=== PATIENT | female | born 1960 | race African-American/Black ===

== ENCOUNTER 2016-11-28 09:01 | Emergency (ER) | payer OTHER ==
[~2016-11-28] VITALS: Wt 115.0 kg
[2016-11-28] MEDS ORDERED: HC2.5O30 TOP (09:40)
[2016-11-28] MEDS ORDERED: HYDR-845 PO (09:40)
[2016-11-28] MEDS ORDERED: CEPH500C PO (09:40)
--- NOTE | 2016-11-28 09:59 | ERD ---
ER Documentation Chief Complaint Date/Time DATE: 11/28/16 TIME: 09:54 Chief Complaint DRY/ITCHY SKIN ON HANDS, ONSET 3 DAYS HPI This is a 56-year-old female with a history of eczema presenting to the emergency department complaining of rash on hands bilaterally for the past week. States is moderate to severe. Patient states that it is very itchy and started after washing her hands. She states that her hands are very dry and it was weeping discharge yesterday. Patient states that she has been using triamcinolone cream in the past however they have told her to discontinue it since it tends the skin. She states that she has not tried any creams or medications for her hands. She denies any fevers. She states that she has not followed up with a clay modeler ROS All systems reviewed and are negative except as per history of present illness. Medications Home Meds Active Scripts Hydrocortisone* Topical (Hydrocortisone* Topical) 2.5%-28.3 Gm Oint, 1 APPLIC TOP BID for 7 Days, TUB Prov:GRANT SHER PA-C 11/28/16 Cephalexin* (Cephalexin*) 500 Mg Capsule, 500 MG PO Q6, #28 CAP Prov:GRANT SHER PA-C 11/28/16 Hydroxyzine Hcl* (Atarax*) 50 Mg Tab, 50 MG PO Q8H Y for ITCHING, #30 TAB Prov:GRANT SHER PA-C 11/28/16 PMhx/Soc Medical and Surgical Hx: pt denies Surgical Hx History of Surgery: No Anesthesia Reaction: No Hx Neurological Disorder: No Hx Respiratory Disorders: No Hx Cardiac Disorders: No Hx Psychiatric Problems: No Hx Miscellaneous Medical Probl: Yes (Psoriasis) Hx Alcohol Use: No Hx Substance Use: No Hx Tobacco Use: No Smoking Status: Never smoker Physical Exam Vitals Vital Signs Date Time Temp Pulse Resp B/P Pulse Ox O2 Delivery O2 Flow Rate FiO2 11/28/16 09:09 97.6 71 18 168/83 98 Physical Exam General: WD/WN, in no apparent distress, non-toxic appearing HENT: NC/AT Eyes: Conjunctiva normal Neck: Supple Pulm: Clear to auscultation, normal labored breathing; no wheezing/rales/ rhonchi heard CV: Good capillary refill GI: Non-distended, no guarding Back: No masses Ext: No clubbing, cyanosis, or edema Neuro: Moves on all fours Skin: Thickened erythematous eczematous dermatitis on bilateral hands with lichenification, no evidence of induration or purulence Psych: Normal mood Procedures/MDM This is a 56-year-old female presenting to the emergency department with rash on hands bilaterally which is most consistent with eczema exacerbation vs contact dermatitis. Patient's hands had cracked and broken skin with erythema, patient will be given Keflex for possible secondary infection. Patient is appropriate to be discharged home to follow-up with a clay modeler in the next couple days. I discussed a short course of low potency of steroids for one week , since patient was told to not use any high potency steroids because she has the risk for thinning skin. Prescription for Atarax and hydrocortisone 2.5% ointment was given 1 week. Patient stable for discharge for home with precautions to return to the emergency department for any worsening symptoms. She understands and agrees with this plan Departure Diagnosis: Primary Impression: Dermatitis Condition: Fair Patient Instructions: Atopic Dermatitis (Eczema), Contact Dermatitis Referrals: [facility] YOU HAVE RECEIVED A MEDICAL SCREENING EXAM AND THE RESULTS INDICATE THAT YOU DO NOT HAVE A CONDITION THAT REQUIRES URGENT TREATMENT IN THE EMERGENCY DEPARTMENT. FURTHER EVALUATION AND TREATMENT OF YOUR CONDITION CAN WAIT UNTIL YOU ARE SEEN IN YOUR DOCTORS OFFICE WITHIN THE NEXT 1-2 DAYS. IT IS YOUR RESPONSIBILITY TO MAKE AN APPOINTMENT FOR FOLOW-UP CARE. IF YOU HAVE A PRIMARY DOCTOR --you should call your primary doctor and schedule an appointment IF YOU DO NOT HAVE A PRIMARY DOCTOR YOU CAN CALL OUR PHYSICIAN REFERRAL HOTLINE AT IF YOU CAN NOT AFFORD TO SEE A PHYSICIAN YOU CAN CHOSE FROM THE FOLLOWING [facility] [id number] [facility]. [facility] [address] [facility] [facility] [address] [facility]. [facility] [id number] [facility]. [facility] [address] [facility]. [facility]. [address] Additional Instructions: FOLLOW UP WITH YOUR PRIMARY CARE PHYSICIAN TOMORROW.Return to this facility if you are not improving as expected. You will need to see a clay modeler Take all medicines as directed. You have been given a medicine which may cause drowsiness.DO NOT DRIVE OR OPERATE DANGEROUS MACHINERY while taking this medicine! Return to this facility if you are not improving as expected. GRANT SHER PA-C Nov 28, 2016 09:59
== END 2016-11-28 10:00 | disposition home or self-care (01) ==
LOC: FTE 09:01
DX: L30.9 Dermatitis, unspecified (principal)
CPT/HCPCS: 99283